=== PATIENT | female | born 2005 | race Caucasian/White ===

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

== ENCOUNTER 2023-04-03 06:13 | Emergency (ER) | payer BC, OTHER ==
[2023-04-03 06:22] VITALS: TEMP 98.6
--- NOTE | 2023-04-03 07:11 | ED ---
Female Urogenital HPI - General Chief complaint: Vaginal Bleeding Stated complaint: Vaginal Bleeding, Pain Time Seen by Provider: 04/03/23 06:23 Source: patient, RN notes reviewed Mode of arrival: ambulatory Limitations: no limitations - History of Present Illness Initial comments: 17-year-old female presents emergency Department chief complaints vaginal bleeding early . Patient states she was at [facility] 2 days ago and hCG of 4500. Patient states that she continues to have vaginal bleeding mild cramping. Patient is A1. Patient states she was passing some clots which has subsided. She states she does not know blood type she has. She denies any fevers or chills no other associated symptoms. - Related Data Home Medications Medication Instructions Recorded Confirmed Acetaminophen [Children's Tylenol] 480 mg PO Q6HR PRN 01/29/17 01/29/17 Aspirin/Sod Bicarb/Citric Acid 1 tab PO HS PRN 01/29/17 01/29/17 [[place] Original Tab Eff] Azithromycin [Zithromax Z-pack] See Taper PO DIRECTED 01/29/17 01/29/17 Previous Rx's Medication Instructions Recorded Acetaminophen Tab [Tylenol Tab] 500 mg PO Q6H PRN #24 tablet 08/12/22 Ibuprofen [Motrin] 600 mg PO Q8HR PRN #30 tab 08/12/22 Allergies Allergy/AdvReac Type Severity Reaction Status Date / Time amoxicillin AdvReac Swelling Verified 04/03/23 06:22 Review of Systems ROS Statement: Those systems with pertinent positive or pertinent negative responses have been documented in the HPI. ROS Other: All systems not noted in ROS Statement are negative. Past Medical History Past Medical History: No Reported History History of Any Multi-Drug Resistant Organisms: None Reported Past Surgical History: No Surgical Hx Reported Additional Past Surgical History / Comment(s): [place] Past Psychological History: No Psychological Hx Reported Smoking Status: Never smoker Past Alcohol Use History: None Reported Past Drug Use History: None Reported General Exam Limitations: no limitations General appearance: alert, in no apparent distress Head exam: Present: atraumatic, normocephalic, normal inspection Neck exam: Present: normal inspection. Absent: tenderness, meningismus, lymphadenopathy Respiratory exam: Present: normal lung sounds bilaterally. Absent: respiratory distress, wheezes, rales, rhonchi, stridor Cardiovascular Exam: Present: regular rate, normal rhythm, normal heart sounds. Absent: systolic murmur, diastolic murmur, rubs, gallop, clicks GI/Abdominal exam: Present: soft, normal bowel sounds. Absent: distended, tenderness, guarding, rebound, rigid Course Vital Signs 04/03/23 04/03/23 06:20 08:41 Temperature 98.6 F Pulse Rate 82 72 Respiratory 18 16 Rate Blood Pressure 105/67 100/63 O2 Sat by Pulse 98 97 Oximetry Medical Decision Making - Medical Decision Making Was pt. sent in by a medical professional or institution (, PA, [employer]EE ANDROID DEVELOPER, urgent care, hospital, or jail...) When possible be specific @ -No Did you speak to anyone other than the patient for history (EMS, parent, family, police, friend...)? What history was obtained from this source @ -No Did you review nursing and triage notes (agree or disagree)? Why? @ -I reviewed and agree with nursing and triage notes Were old charts reviewed (outside hosp., previous admission, EMS record, old EKG, old radiological studies, urgent care reports/EKG's, jail records)? Report findings @ -[Review the x-rays from [facility] Differential Diagnosis (chest pain, altered mental status, abdominal pain women, abdominal pain men, vaginal bleeding, weakness, fever, dyspnea, syncope, headache, dizziness, GI bleed, back pain, seizure, CVA, palpatations, mental health, musculoskeletal)? @ -nDifferential Vaginal Bleeding: Spontaneous , threatened , molar , ectopic , bloody show, incompetent cervix, abruptioplacenta, placenta previa, uterine rupture, dysfunctional uterine bleeding, hemorrhage, uterine fibroids, this is not meant to be an all-inclusive list.cable EKG interpreted by me (3pts min.). @ -None X-rays interpreted by me (1pt min.). @ -None done CT interpreted by me (1pt min.). @ -None done U/S interpreted by me (1pt. min.). @ -None done What testing was considered but not performed or refused? (CT, X-rays, U/S, labs)? Why? @ -None What meds were considered but not given or refused? Why? @ -None Did you discuss the management of the patient with other professionals (professionals i.e. , PA, [employer]EE ANDROID DEVELOPER, lab, RT, psych nurse, social contact worker, senior energy consultant, teacher, gift officer, case management assistant)? Give summary @ -No Was smoking cessation discussed for >3mins.? @ -No Was critical care preformed (if so, how long)? @ -No Were there social determinants of health that impacted care today? How? (Homelessness, low income, unemployed, alcoholism, drug addiction, trans portation, low edu. Level, literacy, decrease access to med. care, penitentiary, rehab)? @ -No Was there de-escalation of care discussed even if they declined (Discuss DNR or withdrawal of care, Hospice)? DNR status @ -No What co-morbidities impacted this encounter? (DM, HTN, Smoking, COPD, CAD, Cancer, CVA, ARF, Chemo, Hep., AIDS, mental health diagnosis, sleep apnea, morbid obesity)? @ -None Was patient admitted / discharged? Hospital course, mention meds given and route, prescriptions, significant lab abnormalities, going to OR and other pertinent info. @ -Discharge patient is having a miscarriage patient is not hemorrhaging vitals are stable patient is a positive blood type hCG decline from 0612-1338. Patient will follow-up with [facility] return parameters were discussed. Undiagnosed new problem with uncertain prognosis? @ -No Drug Therapy requiring intensive monitoring for toxicity (Heparin, Nitro, In sulin, Cardizem)? @ -No Were any procedures done? @ -No Diagnosis/symptom? @ -Miscarriage Acute, or Chronic, or Acute on Chronic? @ -Acute Uncomplicated (without systemic symptoms) or Complicated (systemic symptoms)? @ -Uncomplicated Side effects of treatment? @ -No Exacerbation, Progression, or Severe Exacerbation? @ -No Poses a threat to life or bodily function? How? (Chest pain, [place], ME, pneumonia, PE, COPD, DKA, ARF, appy, cholecystitis, CVA, Diverticulitis, Homicidal, Suicidal, threat to staff... and all critical care pts) @ -No - Lab Data Result diagrams: 04/03/23 06:47 04/03/23 06:47 Lab Results 04/03/23 04/03/23 04/03/23 Range/Units 06:47 06:47 06:47 WBC 7.0 (4.0-11.0) k/uL RBC 4.14 (3.80-5.40) m/uL Hgb 13.4 (11.4-16.0) gm/dL Hct 38.3 (34.0-46.0) % MCV 92.5 (80.0-100.0) fL MCH 32.4 (25.0-35.0) pg MCHC 35.0 (31.0-37.0) g/dL RDW 12.3 (11.5-15.5) % Plt Count 211 (150-450) k/uL MPV 7.9 Neutrophils % 53 % Lymphocytes % 35 % Monocytes % 6 % Eosinophils % 3 % Basophils % 0 % Neutrophils # 3.7 (1.3-7.7) k/uL Lymphocytes # 2.5 (1.0-4.8) k/uL Monocytes # 0.4 (0-1.0) k/uL Eosinophils # 0.2 (0-0.7) k/uL Basophils # 0.0 (0-0.2) k/uL Sodium 139 (137-145) mmol/L Potassium 4.0 (3.5-5.1) mmol/L Chloride 106 (98-107) mmol/L Carbon Dioxide 24 (22-30) mmol/L Anion Gap 9 mmol/L BUN 8 (7-17) mg/dL Creatinine 0.53 (0.52-1.04) mg/dL Est GFR (CKD-EPI)AfAm >90 (>60 ml/min/1.73 sqM) Est GFR (CKD-EPI)NonAf >90 (>60 ml/min/1.73 sqM) Glucose 117 H (74-99) mg/dL Calcium 9.0 (8.4-10.2) mg/dL HCG, Quant 3098.8 mIU/mL Urine Color Red Urine Appearance Turbid H (Clear) Urine pH 5.5 (5.0-8.0) Ur Specific [place] 1.022 (1.001-1.035) Urine Protein 2+ H (Negative) Urine Glucose (UA) Negative (Negative) Urine Ketones Trace H (Negative) Urine Blood Large H (Negative) Urine Nitrite Negative (Negative) Urine Bilirubin Negative (Negative) Urine Urobilinogen <2.0 (<2.0) mg/dL Ur Leukocyte Esterase Large H (Negative) Urine RBC >182 H (0-5) /hpf Urine WBC 33 H (0-5) /hpf Ur Squamous Epith Cells 37 H (0-4) /hpf Urine Mucus Occasional H (None) /hpf Blood Type Blood Type Recheck Bld Type Recheck Status 04/03/23 Range/Units 06:47 WBC (4.0-11.0) k/uL RBC (3.80-5.40) m/uL Hgb (11.4-16.0) gm/dL Hct (34.0-46.0) % MCV (80.0-100.0) fL MCH (25.0-35.0) pg MCHC (31.0-37.0) g/dL RDW (11.5-15.5) % Plt Count (150-450) k/uL MPV Neutrophils % % Lymphocytes % % Monocytes % % Eosinophils % % Basophils % % Neutrophils # (1.3-7.7) k/uL Lymphocytes # (1.0-4.8) k/uL Monocytes # (0-1.0) k/uL Eosinophils # (0-0.7) k/uL Basophils # (0-0.2) k/uL Sodium (137-145) mmol/L Potassium (3.5-5.1) mmol/L Chloride (98-107) mmol/L Carbon Dioxide (22-30) mmol/L Anion Gap mmol/L BUN (7-17) mg/dL Creatinine (0.52-1.04) mg/dL Est GFR (CKD-EPI)AfAm (>60 ml/min/1.73 sqM) Est GFR (CKD-EPI)NonAf (>60 ml/min/1.73 sqM) Glucose (74-99) mg/dL Calcium (8.4-10.2) mg/dL HCG, Quant mIU/mL Urine Color Urine Appearance (Clear) Urine pH (5.0-8.0) Ur Specific [place] (1.001-1.035) Urine Protein (Negative) Urine Glucose (UA) (Negative) Urine Ketones (Negative) Urine Blood (Negative) Urine Nitrite (Negative) Urine Bilirubin (Negative) Urine Urobilinogen (<2.0) mg/dL Ur Leukocyte Esterase (Negative) Urine RBC (0-5) /hpf Urine WBC (0-5) /hpf Ur Squamous Epith Cells (0-4) /hpf Urine Mucus (None) /hpf Blood Type A Positive Blood Type Recheck No Previous Record Bld Type Recheck Status [facility] ONLY Disposition Clinical Impression: Miscarriage Disposition: HOME SELF-CARE Condition: Stable Instructions (If sedation given, give patient instructions): Miscarriage (ED) Additional Instructions: Please return to the Emergency Department if symptoms worsen or any other concerns. Is patient prescribed a controlled substance at d/c from ED?: No Referrals: None,Stated [Primary Care Provider] - 1-2 days Time of Disposition: 07:58
[2023-04-03 07:15] LABS: Basophils % (A) 0 %; Eosinophils # (A) 0.2 k/uL (0-0.7); Eosinophils % (A) 3 %; HCT 38.3 % (34.0-46.0); HGB 13.4 gm/dL (11.4-16.0); Lymphocytes # (A) 2.5 k/uL (1.0-4.8); Lymphocytes % (A) 35 %; MCH 32.4 pg (25.0-35.0); MCV 92.5 fL (80.0-100.0); Mean Platelet Volume 7.9; Monocytes # (A) 0.4 k/uL (0-1.0); Monocytes % (A) 6 %; Neutrophils # (A) 3.7 k/uL (1.3-7.7); Neutrophils % (A) 53 %; Platelet Count 211 k/uL (150-450); RBC 4.14 m/uL (3.80-5.40); RDW 12.3 % (11.5-15.5)
[2023-04-03 07:16] LABS: African American GFR (CKD) >90 (>60 ml/min/1.73 sqM); Anion Gap 9 mmol/L; Blood Urea Nitrogen 8 mg/dL (7-17); Carbon Dioxide 24 mmol/L (22-30); Chloride 106 mmol/L (98-107); Glucose 117 mg/dL (74-99); Non-African American GFR(CKD) >90 (>60 ml/min/1.73 sqM); Sodium 139 mmol/L (137-145)
[2023-04-03 07:23] LABS: Appearance,Urine Turbid (Clear); Bilirubin,Urine Negative (Negative); Blood,Urine Large (Negative); Color,Urine Red; Glucose,Urine (UA) Negative (Negative); Ketones,Urine Trace (Negative); Leukocyte Esterase,Urine Large (Negative); Mucus,Urine Occasional /hpf; Nitrite,Urine Negative (Negative); PH, Urine 5.5 (5.0-8.0); Protein,Urine 2+ (Negative); RBC,Urine >182 /hpf (0-5); Specific Gravity,Urine 1.022 (1.001-1.035); Squamous Epithelial Cell,Urine 37 /hpf (0-4); Urobilinogen,Urine <2.0 mg/dL (<2.0); WBC,Urine 33 /hpf (0-5)
[2023-04-03 07:33] LABS: HCG,Quantitative Serum 3098.8 mIU/mL
[2023-04-03 08:42] VITALS: BP 100/63; PULSE 72; RESP 16
== END 2023-04-03 08:41 | disposition home or self-care (01) ==
LOC: EC 06:13
DX: O03.9 Complete or unspecified spontaneous abortion without complication (principal); Z88.0 Allergy status to penicillin
CPT/HCPCS: 36415; 80048; 81001; 84702; 85025; 86900; 86901; 99284

== ENCOUNTER 2023-10-25 17:53 | Outpatient (CLI) | payer OTHER ==
[2023-10-25 18:37] LABS: Appearance,Urine Clear (Clear); Bilirubin,Urine Negative (Negative); Blood,Urine Negative (Negative); Color,Urine Yellow; Glucose,Urine (UA) Negative (Negative); Ketones,Urine Negative (Negative); Leukocyte Esterase,Urine Negative (Negative); Nitrite,Urine Negative (Negative); Protein,Urine Negative (Negative); Specific Gravity,Urine 1.026 (1.001-1.035)
[2023-10-25 20:28] VITALS: BP 118/62; PULSE 104; RESP 18; TEMP 98.4
--- NOTE | 2023-10-27 11:20 | P.MSEPDOC ---
Presenting Problems - Arrival Data Date of Arrival on Unit: 10/25/23 Time of Arrival on Unit: 17:53 Mode of Transport: Ambulatory - Complaint OB-Reason for Admission/Chief Complaint: Pain Comment: Right flank pain Medical History - Information : 3 Para: 0 Term: 0 : 0 Abortions: Spontaneous or Elective: 0 Number of Living Children: 0 - Gestational Age Gestational Age by CHRISTIANE (wks/days): 20 Weeks and 2 Days Review of Systems - Review of Systems Constitutional: No problems Breast: No problems ENT: No problems Cardiovascular: No problems Respiratory: No problems Gastrointestinal: No problems Genitourinary: No problems Musculoskeletal: No problems Neurological: No problems Skin: No problems Vital Signs - Temperature Temperature: 98.4 F Temperature Source: Temporal Artery Scan - Pulse Pulse Oximetery Pulse Rate: 104 Pulse Assessment Method: Pulse Oximetry - Respirations Respiratory Rate: 18 Oxygen Delivery Method: Room Air O2 Sat by Pulse Oximetry: 99 - Blood Pressure Right Arm Blood Pressure: 118/62 Blood Pressure Mean: 80 Blood Pressure Source: Automatic Cuff Medical Screen Scoring - Assessment - Baby A Baseline FHR: 140 Physician Notification - Physician Notified Physician Notified Date: 10/25/23 Physician Notified Time: 19:58 Physician: Justin Ley New Order Received: Yes - Notification Comment Comment: Dr. Ley called, report given on pt's c/o R flank pain with some slight tenderness x "a few weeks" but worse last night and today. FHR 135-145 via doppler, no contractions noted, UA is WNL (no blood/ketones/WBCs). Pt was seen this week for her anatomy scan. Per MD, pain could be a possible kidney stone or muscle strain. Orders to discharge pt home with instructions to hydrate and continue tylenol/baths for musculoskeletal pain. F/U this week Maternal Triage Index - Maternal Triage Index Presenting for scheduled procedure w/no complaint: No - Stat/Priority 1 Stat Priority 1: No - Urgent/Priority 2 Urgent Priority 2: No - Prompt/Priority 3 Prompt Priority 3: No - Non-Urgent/Priority 4 Non-Urgent Priority 4: Yes Criteria Met for Priority 4: 20 3/7wks, R flank pain x"a few weeks" Disposition - Disposition OB Disposition: Discharge to home Discharge Date: 10/25/23 Discharge Time: 20:12 I agree with the RN Medical Screening Exam: Yes Physician's MSE Comment: I have neither seen nor examined the patient. Case reviewed; plan agreed upon as documented in EMR&OBIX.: Yes Diagnosis: RELATED CONDITIONS, UNSPECIFIED, SECOND TRIMESTER
== END 2023-10-25 20:12 | disposition home or self-care (01) ==
LOC: FBPOP 17:53
PROVIDERS: ATTEND Obstetrics & Gynecology
DX: O26.892 Other specified pregnancy related conditions, second trimester (principal); R10.9 Unspecified abdominal pain; Z3A.20 20 weeks gestation of pregnancy; Z88.0 Allergy status to penicillin; Z79.82 Long term (current) use of aspirin
CPT/HCPCS: 81003; G0463; 99213

== ENCOUNTER 2023-11-17 01:32 | Outpatient (CLI) | payer OTHER ==
[2023-11-17 02:42] VITALS: BP 117/63; PULSE 120; RESP 20; TEMP 99.6
--- NOTE | 2023-11-17 11:44 | P.MSEPDOC ---
Presenting Problems - Arrival Data Date of Arrival on Unit: 11/17/23 Time of Arrival on Unit: 01:32 Mode of Transport: Wheelchair - Complaint OB-Reason for Admission/Chief Complaint: Observation/Evaluation Comment: Patient complaint of chest pressure, difficulty breathing, weakness in the arms and legs, and pain in her upper back. Denies contractions. Medical History - Information : 3 Para: 0 Term: 0 : 0 Abortions: Spontaneous or Elective: 2 Number of Living Children: 0 - Gestational Age Gestational Age by CHRISTIANE (wks/days): 23 Weeks and 4 Days Review of Systems - Review of Systems Constitutional: No problems Breast: No problems ENT: No problems Cardiovascular: No problems Respiratory: No problems Gastrointestinal: No problems Genitourinary: No problems Musculoskeletal: No problems Neurological: No problems Skin: No problems Vital Signs - Temperature Temperature: 99.6 F Temperature Source: Oral - Pulse Pulse Oximetery Pulse Rate: 120 Pulse Assessment Method: Pulse Oximetry - Respirations Respiratory Rate: 20 Oxygen Delivery Method: Room Air O2 Sat by Pulse Oximetry: 98 - Blood Pressure Right Arm Blood Pressure: 117/63 Blood Pressure Mean: 81 Blood Pressure Source: Automatic Cuff Medical Screen Scoring - Assessment - Baby A Baseline FHR: 150 Physician Notification - Physician Notified Physician Notified Date: 11/17/23 Physician Notified Time: 01:42 Physician: Justin Ley New Order Received: No Maternal Triage Index - Maternal Triage Index Presenting for scheduled procedure w/no complaint: No - Stat/Priority 1 Stat Priority 1: No - Urgent/Priority 2 Urgent Priority 2: Yes Provider Notified: Justin Ley Provider Notified Time: 01:42 Criteria Met for Priority 2: Dr. Ley called, report given on maternal at status. FHR 150's baseline, no contractions felt by patient at this time. vitals (elevated HR), and complaint of chest pressure, difficulty breathing, weakness in the arms and legs and upper back pain. Orders to discharge and take patient to ER for evalutation. Prilosec OTC PRN for heartburn. Disposition - Disposition OB Disposition: Discharge to home Discharge Date: 11/17/23 Discharge Time: 01:51 I agree with the RN Medical Screening Exam: Yes Physician's MSE Comment: I have neither seen nor examined the patient. Case reviewed; plan agreed upon as documented in EMR&OBIX.: Yes Diagnosis: RELATED CONDITIONS, UNSPECIFIED, SECOND TRIMESTER
== END 2023-11-17 01:51 | disposition home or self-care (01) ==
LOC: FBPOP 01:32
PROVIDERS: ATTEND Obstetrics & Gynecology
DX: O26.892 Other specified pregnancy related conditions, second trimester (principal); Z3A.23 23 weeks gestation of pregnancy; Z88.0 Allergy status to penicillin
CPT/HCPCS: 99213

== ENCOUNTER 2023-11-17 02:01 | Emergency (ER) | payer OTHER ==
--- NOTE | 2023-11-17 02:23 | ED ---
General Adult HPI - General Chief complaint: Upper Respiratory Infection Stated complaint: Chest pain, difficulty breathing, weakness Time Seen by Provider: 11/17/23 02:07 Source: patient, RN notes reviewed, old records reviewed Mode of arrival: ambulatory Limitations: no limitations - History of Present Illness Initial comments: 18-year-old female presenting for evaluation of cough, congestion, myalgia. Symptoms began today. She was first seen in labor and delivery because she is currently 23 weeks this is her first . She was cleared by labor and delivery and sent to the emergency department for evaluation of symptoms. She has had no abdominal pain. No vaginal bleeding. No dysuria or hematuria. She has had cough, chest congestion, subjective fever and chills. Patient is otherwise healthy. - Related Data Allergies Allergy/AdvReac Type Severity Reaction Status Date / Time amoxicillin AdvReac Swelling Verified 11/17/23 02:06 Review of Systems ROS Statement: Those systems with pertinent positive or pertinent negative responses have been documented in the HPI. ROS Other: All systems not noted in ROS Statement are negative. Past Medical History Past Medical History: No Reported History History of Any Multi-Drug Resistant Organisms: None Reported Past Surgical History: No Surgical Hx Reported Additional Past Surgical History / Comment(s): Tebbetts Past Psychological History: No Psychological Hx Reported Smoking Status: Never smoker Past Alcohol Use History: None Reported Past Drug Use History: None Reported General Exam Limitations: no limitations General appearance: alert, in no apparent distress Head exam: Present: atraumatic, normocephalic Eye exam: Present: normal appearance, PERRL ENT exam: Present: mucous membranes moist Respiratory exam: Present: normal lung sounds bilaterally. Absent: respiratory distress, wheezes Cardiovascular Exam: Present: regular rate, normal rhythm GI/Abdominal exam: Present: soft, other (Gravid). Absent: tenderness Extremities exam: Present: normal inspection, normal capillary refill. Absent: calf tenderness Neurological exam: Present: alert, oriented X3 Psychiatric exam: Present: normal affect, normal mood Skin exam: Present: warm, dry, intact. Absent: cyanosis, diaphoretic Course Vital Signs 11/17/23 11/17/23 11/17/23 02:04 02:35 02:47 Temperature 97.8 F 99.1 F 100.1 F H Pulse Rate 109 H Respiratory 16 Rate Blood Pressure 109/68 O2 Sat by Pulse 98 Oximetry - Reevaluation(s) Reevaluation #1: 11/17/23 03:03 Patient offered Tamiflu, declines at this time. Instructed to take Tylenol for fever and body ache. To maintain hydration. To return with worsening or changing symptoms. Please follow-up with your help aid. Medical Decision Making - Medical Decision Making Was pt. sent in by a medical professional or institution (, DREA, SOFTWARE PROJECT MANAGER, urgent care, hospital, or fci...) When possible be specific @ -No Did you speak to anyone other than the patient for history (EMS, parent, family, police, friend...)? What history was obtained from this source @ -No Did you review nursing and triage notes (agree or disagree)? Why? @ -I reviewed and agree with nursing and triage notes Were old charts reviewed (outside hosp., previous admission, EMS record, old EKG, old radiological studies, urgent care reports/EKG's, fci records)? Report findings @ -No old charts were reviewed Differential Diagnosis (chest pain, altered mental status, abdominal pain women, abdominal pain men, vaginal bleeding, weakness, fever, dyspnea, syncope, headache, dizziness, GI bleed, back pain, seizure, CVA, palpatations, mental health, musculoskeletal)? @Coronavirus, pneumonia, influenza EKG interpreted by me (3pts min.). @ -As above X-rays interpreted by me (1pt min.). @ -None done CT interpreted by me (1pt min.). @ -None done U/S interpreted by me (1pt. min.). @ -None done What testing was considered but not performed or refused? (CT, X-rays, U/S, labs)? Why? @ -None What meds were considered but not given or refused? Why? @ -None Did you discuss the management of the patient with other professionals (professionals i.e. DREA Huntley, SOFTWARE PROJECT MANAGER, lab, RT, psych nurse, social media content specialist, integration aide, teacher, rating officer, case liner)? Give summary @ -No Was smoking cessation discussed for >3mins.? @ -No Was critical care preformed (if so, how long)? @ -No Were there social determinants of health that impacted care today? How? (Homelessness, low income, unemployed, alcoholism, drug addiction, transportation, low edu. Level, literacy, decrease access to med. care, [place] [facility], rehab)? @ -No Was there de-escalation of care discussed even if they declined (Discuss DNR or withdrawal of care, Hospice)? DNR status @ -No What co-morbidities impacted this encounter? (DM, HTN, Smoking, COPD, CAD, Cancer, CVA, ARF, Chemo, Hep., AIDS, mental health diagnosis, sleep apnea, morbid obesity)? @ -None Was patient admitted / discharged? Hospital course, mention meds given and route, prescriptions, significant lab abnormalities, going to OR and other pertinent info. @ -18-year-old female who is currently 23 weeks presenting with cough, congestion, myalgia. Patient does test positive for influenza. She is otherwise well-appearing lungs are clear to auscultation. She appears well- hydrated and is not vomiting. Undiagnosed new problem with uncertain prognosis? @ -No Drug Therapy requiring intensive monitoring for toxicity (Heparin, Nitro, Insulin, Cardizem)? @ -No Were any procedures done? @ -No Diagnosis/symptom? @ -[Influenza A Acute, or Chronic, or Acute on Chronic? @ -Acute Uncomplicated (without systemic symptoms) or Complicated (systemic symptoms)? @ -[default Side effects of treatment? @ -No Exacerbation, Progression, or Severe Exacerbation? @ -No Poses a threat to life or bodily function? How? (Chest pain, [place], [place], pneumonia, PE, COPD, DKA, ARF, appy, cholecystitis, CVA, Diverticulitis, Homicidal, Suicidal, threat to staff... and all critical care pts) @ -Low risk at this time - Lab Data Lab Results 11/17/23 Range/Units 02:14 Influenza Type A (PCR) Detected A (Not Detectd) Influenza Type B (PCR) Not Detected (Not Detectd) RSV (PCR) Not Detected (Not Detectd) SARS-CoV-2 (PCR) Not Detected (Not Detectd) Disposition Clinical Impression: Influenza A Disposition: HOME SELF-CARE Condition: Fair Instructions (If sedation given, give patient instructions): Influenza (ED) Is patient prescribed a controlled substance at d/c from ED?: No Referrals: None,Stated [Primary Care Provider] - 1-2 days Time of Disposition: 02:58
[2023-11-17] MEDS: ACETAMINOPHEN TAB 500 MG TAB PO STA (02:30)
[2023-11-17 03:14] VITALS: TEMP 99.1
[2023-11-17 03:46] VITALS: BP 109/54; PULSE 82; RESP 18
== END 2023-11-17 03:46 | disposition home or self-care (01) ==
LOC: EC 02:01
DX: O99.512 Diseases of the respiratory system complicating pregnancy, second trimester (principal); J10.1 Influenza due to other identified influenza virus with other respiratory manifestations; Z88.0 Allergy status to penicillin; Z20.822 Contact with and (suspected) exposure to COVID-19; Z3A.23 23 weeks gestation of pregnancy
CPT/HCPCS: 87636; 99284

== ENCOUNTER 2024-01-31 15:28 | Outpatient (CLI) | payer OTHER ==
[2024-01-31 16:09] LABS: Appearance,Urine Clear (Clear); Bilirubin,Urine Negative (Negative); Blood,Urine Negative (Negative); Color,Urine Colorless; Glucose,Urine (UA) Negative (Negative); Ketones,Urine Negative (Negative); Leukocyte Esterase,Urine Negative (Negative); Nitrite,Urine Negative (Negative); PH, Urine 6.5 (5.0-8.0); Protein,Urine Negative (Negative); Specific Gravity,Urine 1.011 (1.001-1.035); Urobilinogen,Urine <2.0 mg/dL (<2.0)
[2024-01-31] MEDS: LACTATED RINGERS 1,000 ML IV SCH (16:16)
== END 2024-01-31 17:00 | disposition home or self-care (01) ==
LOC: FBPOP 15:28
PROVIDERS: ATTEND Obstetrics & Gynecology Obstetrics
DX: R25.2 Cramp and spasm (principal); Z88.0 Allergy status to penicillin
CPT/HCPCS: 59025; 96360; 81003; G0463; 99214

== ENCOUNTER 2024-02-29 09:06 | Outpatient (CLI) | payer OTHER ==
[2024-02-29 10:52] VITALS: BP 122/67; PULSE 78; RESP 16; TEMP 98
--- NOTE | 2024-03-28 11:44 | P.MSEPDOC ---
Presenting Problems - Arrival Data Date of Arrival on Unit: 02/29/24 Time of Arrival on Unit: 09:06 Mode of Transport: Ambulatory - Complaint OB-Reason for Admission/Chief Complaint: Pain Comment: irregular cramping, constant hip/pelvic pain Medical History - Information : 3 Para: 0 Term: 0 : 0 Abortions: Spontaneous or Elective: 2 Number of Living Children: 0 - Gestational Age Gestational Age by CHRISTIANE (wks/days): 38 Weeks and 3 Days Review of Systems - Review of Systems Constitutional: No problems Breast: No problems ENT: No problems Cardiovascular: No problems Respiratory: No problems Gastrointestinal: No problems Genitourinary: No problems Musculoskeletal: No problems Neurological: No problems Skin: No problems Vital Signs - Temperature Temperature: 98.0 F Temperature Source: Temporal Artery Scan - Pulse Pulse Oximetery Pulse Rate: 78 Pulse Assessment Method: Pulse Oximetry - Respirations Respiratory Rate: 16 Oxygen Delivery Method: Room Air O2 Sat by Pulse Oximetry: 99 - Blood Pressure Right Arm Blood Pressure: 122/67 Blood Pressure Mean: 85 Blood Pressure Source: Automatic Cuff Medical Screen Scoring - Cervical Exam Dilation (cm): 1.5 Effacement (%): 70 Station: -2 Membranes: Intact - Uterine Contractions Frequency From (mins): 15 Frequency To (mins): 15 Duration From (seconds): 90 Duration To (seconds): 90 Intensity: Mild Resting: Soft to palpation - Assessment - Baby A Baseline FHR: 125 Heart Rate - NICHD Category: Category I (Normal) NST: Reactive Physician Notification - Physician Notified Physician Notified Date: 02/29/24 Physician Notified Time: 10:26 Physician: Justin Ley New Order Received: Yes - Notification Comment Comment: Dr. Ley on unit, report given on maternal complaints of constant hip/pelvic pain and irregular contractions. Pain started around 0200 after pt finished cleaning. Orders to discharge pt home as long as she has not made any cervical change. Keep her appt on Saturday. Maternal Triage Index - Maternal Triage Index Presenting for scheduled procedure w/no complaint: No - Stat/Priority 1 Stat Priority 1: No - Urgent/Priority 2 Urgent Priority 2: No - Prompt/Priority 3 Prompt Priority 3: No - Non-Urgent/Priority 4 Non-Urgent Priority 4: Yes Criteria Met for Priority 4: 38 3/7wks, irregular cramping, constant hip/pelvic/ligament pain since 0200 Disposition - Disposition OB Disposition: Discharge to home Discharge Date: 02/29/24 Discharge Time: 10:39 I agree with the RN Medical Screening Exam: Yes Physician's MSE Comment: I have neither seen nor examined the patient. Case reviewed; plan agreed upon as documented in EMR&OBIX.: Yes Diagnosis: RELATED CONDITIONS, UNSPECIFIED, THIRD TRIMESTER
== END 2024-02-29 10:39 | disposition home or self-care (01) ==
LOC: FBPOP 09:06
PROVIDERS: ATTEND Obstetrics & Gynecology
DX: O26.893 Other specified pregnancy related conditions, third trimester (principal); M25.559 Pain in unspecified hip; R10.2 Pelvic and perineal pain; Z3A.38 38 weeks gestation of pregnancy; Z88.0 Allergy status to penicillin
CPT/HCPCS: 59025; G0463; 99213

== ENCOUNTER 2024-03-06 14:57 | Inpatient (IN) | payer OTHER ==
[2024-03-06] MEDS ORDERED: miSOPROStoL 200 MCG TAB PO PRN (16:53)
[2024-03-06] MEDS ORDERED: TRANEXAMIC 1,000 MG/100ML-NACL 1,000 MG in EMPTY BAG 1 BAG IV PRN (16:53)
[2024-03-06] MEDS ORDERED: METHYLERGONOVINE 0.2 MG/ML 1 ML AMP IM PRN (16:53)
[2024-03-06] MEDS ORDERED: CARBOPROST TROMETHAMINE 250 MCG/ML 1 ML AMP IM PRN (16:53)
[2024-03-06] MEDS ORDERED: OXYTOCIN 10 UNIT/ML 1 ML VIAL IM PRN (16:53)
[2024-03-06] MEDS ORDERED: TERBUTALINE 1 MG/ML VIAL SQ PRN (16:53)
[2024-03-06] MEDS ORDERED: OXYTOCIN 30 UNITS/500 ML NS 30 UNIT in SALINE 1 500ML.BAG IV SCH (17:00)
[2024-03-06 18:09] LABS: Anisocytosis Slight; Basophils % (A) 0 %; Eosinophils # (A) 0.1 k/uL (0-0.7); Eosinophils % (A) 1 %; HCT 30.3 % (34.0-46.0); HGB 9.1 gm/dL (11.4-16.0); Hypochromasia Marked; Lymphocytes # (A) 1.7 k/uL (1.0-4.8); Lymphocytes % (A) 22 %; MCH 21.6 pg (25.0-35.0); MCV 72.3 fL (80.0-100.0); Mean Platelet Volume 9.1; Microcytosis Moderate; Monocytes # (A) 0.5 k/uL (0-1.0); Monocytes % (A) 6 %; Neutrophils # (A) 5.3 k/uL (1.3-7.7); Neutrophils % (A) 69 %; Platelet Count 218 k/uL (150-450); Poikilocytosis Moderate; RBC 4.19 m/uL (3.80-5.40); RDW 16.9 % (11.5-15.5); WBC 7.7 k/uL (4.0-11.0)
[2024-03-06] MEDS: OXYTOCIN 30 UNITS/500 ML NS 30 UNIT in SALINE 1 500ML.BAG IV SCH (19:48)
[2024-03-06] MEDS: LACTATED RINGERS 1,000 ML IV SCH (19:48)
[2024-03-06] MEDS: LIDOCAINE 0.5% (PF) 5 MG/ML (50 ML SDV) SQ PRN (19:49)
[2024-03-06] MEDS ORDERED: BENZOCAINE/MENTHOL SPRAY 1 GM/SPRAY AEROSOL TOPICAL PRN (21:26)
[2024-03-06] MEDS ORDERED: HYDROCORTISONE 2.5% RECTAL CREAM 30 GM TUBE RECTAL PRN (21:26)
[2024-03-06] MEDS ORDERED: LANOLIN CREAM 1 GM TUBE TOPICAL PRN (21:26)
[2024-03-06] MEDS ORDERED: SIMETHICONE 80 MG CHEWABLE PO PRN (21:26)
[2024-03-06] MEDS ORDERED: diphenhydrAMINE 50 MG CAP PO PRN (21:26)
[2024-03-06] MEDS ORDERED: ACETAMINOPHEN TAB 325 MG TAB PO PRN (21:26)
[2024-03-06] MEDS ORDERED: diphenhydrAMINE 25 MG CAP PO PRN (21:26)
[2024-03-06] MEDS ORDERED: diphenhydrAMINE 50 MG/ML 1 ML VIAL IVP PRN ×2 (21:26)
[2024-03-07] MEDS: IBUPROFEN 600 MG TAB PO PRN (04:28)
[2024-03-07 06:16] LABS: Anisocytosis Slight; Basophils % (A) 0 %; Eosinophils % (A) 0 %; HCT 29.2 % (34.0-46.0); HGB 8.7 gm/dL (11.4-16.0); Hypochromasia Marked; Lymphocytes # (A) 1.7 k/uL (1.0-4.8); Lymphocytes % (A) 15 %; MCH 21.1 pg (25.0-35.0); MCHC 29.7 g/dL (31.0-37.0); Mean Platelet Volume 9.3; Microcytosis Moderate; Monocytes # (A) 0.8 k/uL (0-1.0); Monocytes % (A) 7 %; Neutrophils # (A) 8.8 k/uL (1.3-7.7); Neutrophils % (A) 76 %; Platelet Count 191 k/uL (150-450); Poikilocytosis Moderate; RBC 4.12 m/uL (3.80-5.40); RDW 17.1 % (11.5-15.5); WBC 11.6 k/uL (4.0-11.0)
[2024-03-07] MEDS: SENNOSIDES-DOCUSATE SODIUM 1 EACH TAB PO SCH (08:10)
--- NOTE | 2024-03-07 11:10 | P.HPOB ---
History of Present Illness H&P Date: 03/06/24 Chief Complaint: labor 18-year-old presents at 39 weeks and 1 day Complaining of contractions. She was 5 cm dilated, her percent effaced, -2 station and kash every few minutes. heart tones 135 with moderate variability and reactive. Review of Systems All systems: negative Constitutional: Denies chills, Denies fever Eyes: denies blurred vision, denies pain Ears, nose, mouth and throat: Denies headache, Denies sore throat Cardiovascular: Denies chest pain, Denies shortness of breath Respiratory: Denies cough Gastrointestinal: Denies abdominal pain, Denies diarrhea, Denies nausea, Denies vomiting Genitourinary: Denies dysuria, Denies hematuria Musculoskeletal: Denies myalgias Integumentary: Denies pruritus, Denies rash Neurological: Denies numbness, Denies weakness Psychiatric: Denies anxiety, Denies depression Endocrine: Denies fatigue, Denies weight change Past Medical History Past Medical History: No Reported History History of Any Multi-Drug Resistant Organisms: None Reported Past Surgical History: No Surgical Hx Reported Additional Past Surgical History / Comment(s): [place] Past Psychological History: No Psychological Hx Reported Smoking Status: Never smoker Past Alcohol Use History: None Reported Past Drug Use History: None Reported - Past Family History Father Family Medical History: No Reported History Medications and Allergies Home Medications Medication Instructions Recorded Confirmed Type Vit No.179/Iron/Folic 1 each PO DAILY 02/29/24 03/06/24 History [ Tablet] Allergies Allergy/AdvReac Type Severity Reaction Status Date / Time Penicillins Allergy Rash/Hives Verified 03/06/24 15:01 Exam Osteopathic Statement: *. No significant issues noted on an osteopathic structural exam other than those noted in the History and Physical/Consult. Vital Signs Temp Pulse Resp BP BP Pulse Ox 03/07/24 08:00 98.4 F 104 H 16 107/65 97 03/07/24 07:38 16 03/07/24 04:00 98.9 F 82 16 103/55 97 03/06/24 23:57 98.5 F 100 16 108/61 96 03/06/24 23:38 16 03/06/24 21:38 98.5 F 101 H 16 115/55 100 03/06/24 21:23 93 16 110/57 03/06/24 21:08 98.9 F 97 16 114/62 03/06/24 20:53 98.5 F 93 16 119/64 03/06/24 20:38 99.2 F 87 16 116/69 100 03/06/24 20:23 98.7 F 83 16 116/65 100 03/06/24 20:08 97.9 F 80 16 124/66 100 03/06/24 19:53 91 16 131/62 03/06/24 19:38 90 16 126/60 03/06/24 16:53 98.2 F 78 16 123/59 Intake and Output 03/06/24 03/07/24 03/07/24 22:59 06:59 14:59 Intake Total 150.3 Output Total 70 Balance 80.3 Intake: Intake, IV Titration 150.3 Amount Oxytocin 30 Units/500 ml 150.3 Ns 30 unit In Saline 1 500ml.bag @ Per Protocol IV .Q0M [facility] Rx#:[id number] Output: Output, Quantitative 70 Blood Loss Other: Voiding Method Toilet # Voids 1 1 1 Weight 68.039 kg Heart: Regular rate and rhythm Lungs: Clear to auscultation bilaterally Abdomen: Soft, nontender Extremities: Negative Homans signl Results Result Diagrams: 03/07/24 05:56 Abnormal Lab Results - Last 24 Hours (Table) 03/06/24 03/07/24 Range/Units 17:00 05:56 WBC 11.6 H (4.0-11.0) k/uL Hgb 9.1 L 8.7 L (11.4-16.0) gm/dL Hct 30.3 L 29.2 L (34.0-46.0) % MCV 72.3 L 71.0 L (80.0-100.0) fL MCH 21.6 L 21.1 L (25.0-35.0) pg MCHC 30.0 L 29.7 L (31.0-37.0) g/dL RDW 16.9 H 17.1 H (11.5-15.5) % Neutrophils # 8.8 H (1.3-7.7) k/uL Assessment and Plan (1) Normal labor Current Visit: Yes Status: Acute Code(s): O80 - ENCOUNTER FOR FULL-TERM UNCOMPLICATED DELIVERY; Z37.9 - OUTCOME OF DELIVERY, UNSPECIFIED SNOMED Code(s): 41628276 Plan: 1. Admit to family place 2. Expectant management 3. Anticipate normal vaginal delivery
--- NOTE | 2024-03-07 11:12 | P.PROBDLV ---
Vaginal Delivery Note - . Vaginal Delivery Note: 18-year-old presents at 39 weeks and 1 day Complaining of contractions. She was 5 cm dilated, her percent effaced, -2 station and kash every few minutes. heart tones 135 with moderate variability and reactive. Amniotomy was performed at 1805 and clear fluid noted. Her cervix was completely dilated at 1840. She pushed, delivered a viable female infant over intact perineum at 1922. Head delivered OA, anterior shoulder delivered gentle downward guidance followed by posterior shoulder and rest of body. Nose and mouth bulb suctioned, cord clamped and cut, placed mother's abdomen. Apgars 9, 9, weight 8 lbs. 10 oz. Placenta delivered spontaneously, intact with three-vessel cord at 1925. Vagina, cervix, perineum inspected. First-degree midline laceration was repaired with 3-0 Vicryl. Estimated blood loss 200 mL. Mother and baby in stable condition.
--- NOTE | 2024-03-07 11:14 | P.DS ---
Providers Date of admission: 03/06/24 16:34 Expected date of discharge: 03/07/24 Attending physician: Jolanta Rojo MD Primary care physician: Jolanta Rojo MD - Discharge Diagnosis(es) (1) Normal labor Current Visit: Yes Status: Resolved (2) Status post normal vaginal delivery Current Visit: Yes Status: Acute Hospital Course: Patient presented in active labor. She used nitrous for pain management. She underwent a normal vaginal delivery. course was uneventful. She denies nausea, vomiting, chest pain, shortness of breath or calf pain. Patient will be discharged home day #1 in stable condition to follow-up with Dr. Rojo in 6 weeks. Plan - Discharge Summary New Discharge Prescriptions: New Ibuprofen [Motrin] 600 mg PO Q6HR PRN #30 tab PRN Reason: Mild Pain (Scale 1 To 3) No Action Vit No.179/Iron/Folic [ Tablet] 1 each PO DAILY Discharge Medication List Vit No.179/Iron/Folic [ Tablet] 1 each PO DAILY 02/29/24 [History] Ibuprofen [Motrin] 600 mg PO Q6HR PRN #30 tab 03/07/24 [Rx] Follow up Appointment(s)/Referral(s): Jolanta Rojo MD [Primary Care Provider] - 6 Weeks Discharge Disposition: HOME SELF-CARE
[2024-03-07 16:22] VITALS: BP 121/68; PULSE 92; RESP 18; TEMP 98.6
== END 2024-03-07 20:20 | disposition home or self-care (01) | DRG 560 ==
LOC: FBPOP 14:57 → 4FBP 16:34
PROVIDERS: ADMIT Obstetrics & Gynecology; ATTEND Obstetrics & Gynecology
PROC: 10E0XZZ Delivery of Products of Conception, External Approach (ICD-10-PCS; principal; 2024-03-06)
PROC: 10907ZC Drainage of Amniotic Fluid, Therapeutic from Products of Conception, Via Natural or Artificial Opening (ICD-10-PCS; principal; 2024-03-06)
PROC: 0HQ9XZZ Repair Perineum Skin, External Approach (ICD-10-PCS; principal; 2024-03-06)
DX: O70.0 First degree perineal laceration during delivery (principal); Z37.0 Single live birth; Z3A.39 39 weeks gestation of pregnancy; Z88.0 Allergy status to penicillin
CPT/HCPCS: 59025; 85025; 86850; 86900; 86901; 99213

== ENCOUNTER 2024-05-17 21:43 | Emergency (ER) | payer OTHER ==
[2024-05-17 21:51] VITALS: TEMP 98.3
--- NOTE | 2024-05-17 22:11 | ED ---
Skin/Abscess/FB HPI - General Chief complaint: Skin/Abscess/Foreign Body Stated complaint: Hemmoroids Time Seen by Provider: 05/17/24 22:00 Source: patient, RN notes reviewed Mode of arrival: ambulatory Limitations: no limitations - History of Present Illness Initial comments: Is a G2, female presents emergency department chief complaint of painful defecation and stools. Patient does have a history of hemorrhoids and states that over the past 2 days she has been experiencing bright red blood per rectum and additional to mildly painful bowel movements. Patient denies abdominal pain, nausea, vomiting, diarrhea, fevers, chills. Patient states that she recently took an at home test and is unaware of how far along she is. She is denying vaginal bleeding. Patient has attempted to use hemorrhoid wipes at home with minimal relief. No acute complaints at this time. - Related Data Home Medications Medication Instructions Recorded Confirmed Vit No.179/Iron/Folic 1 each PO DAILY 02/29/24 03/06/24 [ Tablet] Previous Rx's Medication Instructions Recorded Ibuprofen [Motrin] 600 mg PO Q6HR PRN #30 tab 03/07/24 Lidocaine Viscous 2% [Xylocaine 1 ml MUCOUS MEM DAILY PRN #15 ml 05/17/24 Viscous] Allergies Allergy/AdvReac Type Severity Reaction Status Date / Time Penicillins Allergy Rash/Hives Verified 05/17/24 21:51 Review of Systems ROS Statement: Those systems with pertinent positive or pertinent negative responses have been documented in the HPI. ROS Other: All systems not noted in ROS Statement are negative. Past Medical History Past Medical History: No Reported History History of Any Multi-Drug Resistant Organisms: None Reported Past Surgical History: No Surgical Hx Reported Additional Past Surgical History / Comment(s): [place] Past Psychological History: No Psychological Hx Reported Smoking Status: Never smoker Past Alcohol Use History: None Reported Past Drug Use History: None Reported - Past Family History Father Family Medical History: No Reported History General Exam Limitations: no limitations General appearance: alert, in no apparent distress Head exam: Present: atraumatic, normocephalic, normal inspection Eye exam: Present: normal appearance, PERRL, EOMI. Absent: scleral icterus, conjunctival injection, periorbital swelling ENT exam: Present: normal exam, mucous membranes moist Neck exam: Present: normal inspection. Absent: tenderness, meningismus, lymphadenopathy Respiratory exam: Present: normal lung sounds bilaterally. Absent: respiratory distress, wheezes, rales, rhonchi, stridor Cardiovascular Exam: Present: regular rate, normal rhythm, normal heart sounds. Absent: systolic murmur, diastolic murmur, rubs, gallop, clicks GI/Abdominal exam: Present: soft, normal bowel sounds. Absent: distended, tenderness, guarding, rebound, rigid Rectal exam: Present: normal rectal tone, hemorrhoids Extremities exam: Present: normal inspection, full ROM, normal capillary refill. Absent: tenderness, pedal edema, joint swelling, calf tenderness Back exam: Present: normal inspection Neurological exam: Present: alert, oriented X3, CN II-XII intact Skin exam: Present: warm, dry, intact, normal color. Absent: rash Course Vital Signs 05/17/24 05/17/24 21:48 22:47 Temperature 98.3 F Pulse Rate 100 98 Respiratory 18 20 Rate Blood Pressure 110/64 106/70 O2 Sat by Pulse 99 98 Oximetry Medical Decision Making - Medical Decision Making Was pt. sent in by a medical professional or institution (, PA, PACKAGING OPERATOR, urgent care, hospital, or group home...) When possible be specific @ -No Did you speak to anyone other than the patient for history (EMS, parent, family, police, friend...)? What history was obtained from this source @ -No Did you review nursing and triage notes (agree or disagree)? Why? @ -I reviewed and agree with nursing and triage notes Were old charts reviewed (outside hosp., previous admission, EMS record, old EKG, old radiological studies, urgent care reports/EKG's, group home records)? Report findings @ -No old charts were reviewed Differential Diagnosis (chest pain, altered mental status, abdominal pain women, abdominal pain men, vaginal bleeding, weakness, fever, dyspnea, syncope, headache, dizziness, GI bleed, back pain, seizure, CVA, palpatations, mental health, musculoskeletal)? @ -Differential GI Bleed: Esophageal varices, aortoenteric fistula, [place]-De [place], gastritis, peptic ulcer disease, diverticulosis, inflammatory bowel disease, hemorrhoids, fissure, colitis, malignancy, Meckel's diverticulum, this is not meant to be an all- inclusive list. EKG interpreted by me (3pts min.). @ -none X-rays interpreted by me (1pt min.). @ -None done CT interpreted by me (1pt min.). @ -None done U/S interpreted by me (1pt. min.). @ -None done What testing was considered but not performed or refused? (CT, X-rays, U/S, labs)? Why? @ -None What meds were considered but not given or refused? Why? @ -None Did you discuss the management of the patient with other professionals (professionals i.e. DrJeffrey, PA, PACKAGING OPERATOR, lab, RT, psych nurse, social media campaign manager, charging machine operator, teacher, branch lending officer, pillowcase cutter)? Give summary @ -No Was smoking cessation discussed for >3mins.? @ -No Was critical care preformed (if so, how long)? @ -No Were there social determinants of health that impacted care today? How? (Homelessness, low income, unemployed, alcoholism, drug addiction, transportation, low edu. Level, literacy, decrease access to med. care, retirement, rehab)? @ -No Was there de-escalation of care discussed even if they declined (Discuss DNR or withdrawal of care, Hospice)? DNR status @ -No What co-morbidities impacted this encounter? (DM, HTN, Smoking, COPD, CAD, Cancer, CVA, ARF, Chemo, Hep., AIDS, mental health diagnosis, sleep apnea, morbid obesity)? @ -None Was patient admitted / discharged? Hospital course, mention meds given and route, prescriptions, significant lab abnormalities, going to OR and other pertinent info. @ -Discharged. 19-year-old female with painful defecation and bloody stools. On examination patient noted to have external hemorrhoids are not actively bleeding. There is good rectal tone. With patient at bedside supportive treatment including increasing oral hydration, fiber supplements, stool softener, sitz bath's. She is provided prescription for topical viscous lidocaine to apply 1 time per day to aid in symptomatic relief as well. Recommend patient follows up with her hyperion essbase developer and OB for further evaluation of . All questions answered at bedside and strict return parameters discussed with the patient she is verbalized understanding. Discussed with Dr. Moore. Undiagnosed new problem with uncertain prognosis? @ -No Drug Therapy requiring intensive monitoring for toxicity (Heparin, Nitro, Insulin, Cardizem)? @ -No Were any procedures done? @ -No Diagnosis/symptom? @ -Hemorrhoids Acute, or Chronic, or Acute on Chronic? @ -Acute Uncomplicated (without systemic symptoms) or Complicated (systemic symptoms)? @ -uncomplicated Side effects of treatment? @ -No Exacerbation, Progression, or Severe Exacerbation? @ -No Poses a threat to life or bodily function? How? (Chest pain, [place], CA, pneumonia, PE, COPD, DKA, ARF, appy, cholecystitis, CVA, Diverticulitis, Homicidal, Suicidal, threat to staff... and all critical care pts) @ -No Disposition Clinical Impression: Hemorrhoids during Disposition: HOME SELF-CARE Condition: Good Instructions (If sedation given, give patient instructions): Hemorrhoids (ED) Additional Instructions: Return to emergency department for any new or worsening symptoms. Take medication for pain. Increase oral fluid, fiber intake, use of stool softener. Use sitz bath's. Follow-up as scheduled with OB. Prescriptions: Lidocaine Viscous 2% [Xylocaine Viscous] 1 ml MUCOUS MEM DAILY PRN #15 ml PRN Reason: Pain Is patient prescribed a controlled substance at d/c from ED?: No Referrals: None,Stated [Primary Care Provider] - 1-2 days Time of Disposition: 22:41
[2024-05-17 22:49] VITALS: BP 106/70; PULSE 98; RESP 20
== END 2024-05-17 23:15 | disposition home or self-care (01) ==
LOC: EC 21:43
DX: O22.40 Hemorrhoids in pregnancy, unspecified trimester (principal); Z88.0 Allergy status to penicillin; Z3A.00 Weeks of gestation of pregnancy not specified
CPT/HCPCS: 99283

== ENCOUNTER 2024-12-01 19:32 | Outpatient (CLI) | payer OTHER ==
[2024-12-01 21:05] VITALS: BP 118/67; PULSE 94; RESP 18; TEMP 97.7
--- NOTE | 2024-12-18 11:21 | P.MSEPDOC ---
Presenting Problems - Arrival Data Date of Arrival on Unit: 12/01/24 Time of Arrival on Unit: 19:32 Mode of Transport: Ambulatory - Complaint OB-Reason for Admission/Chief Complaint: Pain Comment: left hip pain/numbness/tingling. Medical History - Information : 4 Para: 1 Term: 1 : 0 Abortions: Spontaneous or Elective: 2 Number of Living Children: 1 - Gestational Age Gestational Age by CHRISTIANE (wks/days): 32 Weeks and 6 Days - History Complications: Other Comment: baby is transverse, anterior placenta. Review of Systems - Review of Systems Constitutional: No problems Breast: No problems ENT: No problems Cardiovascular: No problems Respiratory: No problems Gastrointestinal: No problems Genitourinary: No problems Musculoskeletal: Muscle weakness Neurological: No problems Skin: No problems Comment: patient walks with slight limp due to pain. Vital Signs - Temperature Temperature: 97.7 F - Pulse Right Pulse Rate: 94 Pulse Assessment Method: Pulse Oximetry - Respirations Respiratory Rate: 18 Oxygen Delivery Method: Room Air O2 Sat by Pulse Oximetry: 100 - Blood Pressure Right Arm Blood Pressure: 118/67 Blood Pressure Mean: 84 Blood Pressure Source: Automatic Cuff Medical Screen Scoring - Assessment - Baby A Baseline FHR: 125 Heart Rate - NICHD Category: Category I (Normal) NST: Reactive Physician Notification - Physician Notified Physician Notified Date: 12/01/24 Physician Notified Time: 20:24 Physician: Justin Ley Order Received: Yes (d/c home, follow up with Dr Rojo for possible PT consult for sciatica) Maternal Triage Index - Maternal Triage Index Presenting for scheduled procedure w/no complaint: No - Stat/Priority 1 Stat Priority 1: No - Urgent/Priority 2 Urgent Priority 2: No - Prompt/Priority 3 Prompt Priority 3: No - Non-Urgent/Priority 4 Non-Urgent Priority 4: Yes Criteria Met for Priority 4: left hip pain. Disposition - Disposition OB Disposition: Discharge to home Discharge Date: 12/01/24 Discharge Time: 20:30 I agree with the RN Medical Screening Exam: Yes Physician's MSE Comment: I have neither seen nor examined the patient. Case reviewed; plan agreed upon as documented in EMR&OBIX.: Yes Diagnosis: RELATED CONDITIONS, UNSPECIFIED, THIRD TRIMESTER
== END 2024-12-01 20:30 | disposition home or self-care (01) ==
LOC: FBPOP 19:32
PROVIDERS: ATTEND Obstetrics & Gynecology
DX: O26.93 Pregnancy related conditions, unspecified, third trimester (principal); O26.893 Other specified pregnancy related conditions, third trimester; M25.552 Pain in left hip; Z3A.32 32 weeks gestation of pregnancy; Z88.0 Allergy status to penicillin
CPT/HCPCS: 59025; G0463; 99213

== ENCOUNTER 2024-12-30 23:48 | Outpatient (CLI) | payer OTHER ==
[2024-12-31] MEDS: ACETAMINOPHEN IV (For NPO) 1,000 MG in EMPTY BAG 1 BAG IVPB ONE (00:42)
[2024-12-31] MEDS: LACTATED RINGERS 1,000 ML IV SCH (00:44)
[2024-12-31 01:41] LABS: Influenza A Not Detected (Not Detectd); Influenza B Detected (Not Detectd); RSV Not Detected (Not Detectd)
[2024-12-31 03:06] VITALS: BP 95/57; PULSE 139; RESP 16; TEMP 98.7
--- NOTE | 2025-01-30 20:52 | P.MSEPDOC ---
Presenting Problems - Arrival Data Date of Arrival on Unit: 12/30/24 Time of Arrival on Unit: 23:48 Mode of Transport: Wheelchair - Complaint OB-Reason for Admission/Chief Complaint: Observation/Evaluation, Other Comment: Pt comes to with s/s of Influenza. Fever, bady aches,headache,fatigue, cough. Symtoms started this evening. Medical History - Information : 4 Para: 1 Term: 1 Abortions: Spontaneous or Elective: 2 Number of Living Children: 1 - Gestational Age Gestational Age by CHRISTIANE (wks/days): 37 Weeks and 1 Days Review of Systems - Review of Systems Constitutional: Fever, Fatigue Breast: No problems ENT: Sore throat Cardiovascular: No problems Respiratory: No problems Gastrointestinal: No problems Genitourinary: No problems Musculoskeletal: No problems Neurological: No problems Skin: No problems Vital Signs - Temperature Temperature: 98.7 F Temperature Source: Oral - Pulse Right Sitting Pulse Rate: 139 Pulse Assessment Method: Pulse Oximetry - Respirations Respiratory Rate: 16 Oxygen Delivery Method: Room Air O2 Sat by Pulse Oximetry: 97 - Blood Pressure Right Arm Sitting Blood Pressure: 95/57 Blood Pressure Mean: 69 Blood Pressure Source: Automatic Cuff Medical Screen Scoring - Cervical Exam Dilation (cm): 3 Effacement (%): 70 Station: -3 Membranes: Intact - Uterine Contractions Frequency From (mins): 5 Frequency To (mins): 6 Duration From (seconds): 50 Duration To (seconds): 90 Intensity: Moderate Resting: Soft to palpation - Assessment - Baby A Baseline FHR: 145 Heart Rate - NICHD Category: Category I (Normal) NST: Reactive Physician Notification - Physician Notified Physician Notified Date: 12/31/24 Physician Notified Time: 00:23 Physician: Jolanta Rojo Order Received: Yes (Pt may be discharged home once heart rates decreases and IV fluids infused.) - Notification Comment Comment: Positive for Influenza B, Tamiflu to be e-scribed to pts pharmacy. Maternal Triage Index - Maternal Triage Index Presenting for scheduled procedure w/no complaint: No - Stat/Priority 1 Stat Priority 1: No - Urgent/Priority 2 Urgent Priority 2: No - Prompt/Priority 3 Prompt Priority 3: No - Non-Urgent/Priority 4 Non-Urgent Priority 4: Yes Criteria Met for Priority 4: Flu like symptoms.Cramping. Disposition - Disposition OB Disposition: Discharge to home, Written follow up instructions reviewed Discharge Date: 12/31/24 Discharge Time: 02:00 I agree with the RN Medical Screening Exam: Yes Physician's MSE Comment: I have neither seen nor examined the patient Case reviewed; plan agreed upon as documented in EMR&OBIX.: Yes Diagnosis: DEHYDRATION
== END 2024-12-31 02:00 | disposition home or self-care (01) ==
LOC: FBPOP 23:48
PROVIDERS: ATTEND Obstetrics & Gynecology
DX: O26.893 Other specified pregnancy related conditions, third trimester (principal); E86.0 Dehydration; Z88.0 Allergy status to penicillin; Z3A.37 37 weeks gestation of pregnancy
CPT/HCPCS: 59025; 96361; 96365; 87636; G0463; J0131; 99214

== ENCOUNTER 2025-01-18 02:20 | Inpatient (IN) | payer OTHER ==
[2025-01-18] MEDS ORDERED: OXYTOCIN 10 UNIT/ML 1 ML VIAL IM PRN (03:05)
[2025-01-18] MEDS ORDERED: TERBUTALINE 1 MG/ML VIAL SQ PRN (03:05)
[2025-01-18] MEDS ORDERED: LIDOCAINE 0.5% (PF) 5 MG/ML (50 ML SDV) SQ PRN (03:05)
[2025-01-18] MEDS ORDERED: miSOPROStoL 200 MCG TAB RECTAL PRN (03:05)
[2025-01-18] MEDS ORDERED: CARBOPROST TROMETHAMINE 250 MCG/ML 1 ML AMP IM PRN (03:05)
[2025-01-18] MEDS ORDERED: miSOPROStoL 200 MCG TAB PO PRN (03:05)
[2025-01-18] MEDS ORDERED: METHYLERGONOVINE 0.2 MG/ML 1 ML AMP IM PRN (03:05)
[2025-01-18] MEDS ORDERED: TRANEXAMIC 1,000 MG/100ML-NACL 1,000 MG in EMPTY BAG 1 BAG IV PRN (03:05)
[2025-01-18] MEDS ORDERED: OXYTOCIN 30 UNITS/500 ML NS 30 UNIT in SALINE 1 500ML.BAG IV SCH (03:15)
[2025-01-18] MEDS: LACTATED RINGERS 1,000 ML IV SCH (03:37)
[2025-01-18 03:39] LABS: Basophils # (A) 0.02 10*3/uL (0.00-0.10); Basophils % (A) 0.3 %; Eosinophils # (A) 0.03 10*3/uL (0.04-0.35); Eosinophils % (A) 0.4 %; HCT 32.1 % (37.2-46.3); HGB 9.9 g/dL (12.0-15.0); Lymphocytes # (A) 1.64 10*3/uL (0.90-5.00); Lymphocytes % (A) 21.8 %; MCH 23.6 pg (27.0-32.0); MCHC 30.8 g/dL (32.0-37.0); MCV 76.6 fL (80.0-97.0); Mean Platelet Volume 9.7 fL (9.5-12.2); Monocytes # (A) 0.54 10*3/uL (0.20-1.00); Monocytes % (A) 7.2 %; Neutrophils # (A) 5.25 10*3/uL (1.80-7.70); Neutrophils % (A) 69.9 %; Platelet Count 321 10*3/uL (140-440); RBC 4.19 10*6/uL (4.10-5.20); RDW 22.1 % (11.5-14.5); WBC 7.51 10*3/uL (4.50-10.00)
[2025-01-18] MEDS ORDERED: BUTORPHANOL 1 MG/ML 1 ML VIAL IV PRN (04:21)
--- NOTE | 2025-01-18 04:27 | P.HPOB ---
History of Present Illness H&P Date: 01/18/25 Chief Complaint: 39+ weeks, active labor The patient is a 19-year-old 4 para 1-0-2-1 admitted at 39-5/7 weeks as established by last menstrual period confirmed by 10-week ultrasound. She is admitted in active labor with all signs reassuring, category 1 heart rate tracing. Her has been uncomplicated aside from being very short interval in nature with previous delivery less than 1 year ago. Group B strep status is negative. Obstetrical history: 4 para 1-0-2-1 with 1 term vaginal delivery without complications. Current statistics are listed in history of present illness. EDC of 01/20/2025 was established by last menstrual period and confirmed by 10-week ultrasound. Laboratory workup demonstrates a blood type of A+ with a negative antibody screen. Rubella status is immune. The remainder of the laboratory workup was within normal limits. 1 hour Glucola was within normal limits and group B strep status is negative. Gynecologic history: Unremarkable with no history of any infections to include STDs. Review of Systems Review of systems is confined to history of present illness. Past Medical History Past Medical History: No Reported History History of Any Multi-Drug Resistant Organisms: None Reported Past Surgical History: No Surgical Hx Reported Additional Past Surgical History / Comment(s): [place] Past Anesthesia/Blood Transfusion Reactions: No Reported Reaction Past Psychological History: No Psychological Hx Reported Smoking Status: Never smoker Past Alcohol Use History: None Reported Past Drug Use History: None Reported - Past Family History Father Family Medical History: No Reported History Medications and Allergies Home Medications Medication Instructions Recorded Confirmed Type Vit No.179/Iron/Folic 1 each PO DAILY 02/29/24 01/18/25 History [ Tablet] Allergies Allergy/AdvReac Type Severity Reaction Status Date / Time Penicillins Allergy Rash/Hives Verified 12/31/24 00:02 Exam Vital Signs Temp Pulse Resp BP Pulse Ox 01/18/25 02:24 97.3 F L 86 16 122/72 99 Intake and Output 01/17/25 01/17/25 01/18/25 14:59 22:59 06:59 Other: Weight 66.224 kg In general, this is a well-developed, well-nourished white female in no acute distress. Her heart has a regular rhythm and rate without murmur. Her lungs are clear to auscultation bilaterally in all zarate. Her abdomen is gravid, nondistended, has normal active bowel sounds, soft, nontender, and without any palpable masses aside from the uterine fundus. Her extremities are without any cyanosis, clubbing, or edema and are nontender to palpation bilaterally. Most recent digital cervical examination demonstrates her cervix to be 6 cm dilated, 90% effaced, with a vertex and presentation at -2 station. Amniotic membranes are intact. Results Result Diagrams: 01/18/25 03:14 Abnormal Lab Results - Last 24 Hours (Table) 01/18/25 Range/Units 03:14 Hgb 9.9 L (12.0-15.0) g/dL Hct 32.1 L (37.2-46.3) % MCV 76.6 L (80.0-97.0) fL MCH 23.6 L (27.0-32.0) pg MCHC 30.8 L (32.0-37.0) g/dL Eosinophils # 0.03 L (0.04-0.35) 10*3/uL Assessment and Plan (1) Active labor at term Current Visit: Yes Status: Acute Code(s): MMB1580 - SNOMED Code(s): 91462702 Plan: The patient is admitted for active management of labor. She will have close ma ternal and surveillance and expectant management will be practiced. She is a good candidate for epidural or IV anesthesia, which ever she may choose.
[2025-01-18] MEDS ORDERED: LANOLIN CREAM 1 GM TUBE TOPICAL PRN (10:36)
[2025-01-18] MEDS ORDERED: diphenhydrAMINE 50 MG CAP PO PRN (10:36)
[2025-01-18] MEDS ORDERED: SIMETHICONE 80 MG CHEWABLE PO PRN (10:36)
[2025-01-18] MEDS ORDERED: HYDROCORTISONE 2.5% RECTAL CREAM 30 GM TUBE RECTAL PRN (10:36)
[2025-01-18] MEDS ORDERED: diphenhydrAMINE 25 MG CAP PO PRN (10:36)
[2025-01-18] MEDS ORDERED: ZOLPIDEM 5 MG TAB PO PRN (10:36)
[2025-01-18] MEDS ORDERED: diphenhydrAMINE 50 MG/ML 1 ML VIAL IVP PRN ×2 (10:36)
[2025-01-18] MEDS: IBUPROFEN 800 MG TAB PO SCH (10:48)
[2025-01-18] MEDS: BENZOCAINE/MENTHOL SPRAY 1 GM/SPRAY AEROSOL TOPICAL PRN (12:21)
[2025-01-18] MEDS: ACETAMINOPHEN TAB 500 MG TAB PO SCH (20:28)
[2025-01-18] MEDS: SENNOSIDES-DOCUSATE SODIUM 1 EACH TAB PO SCH (23:22)
[2025-01-19 07:03] LABS: Basophils # (A) 0.03 10*3/uL (0.00-0.10); Basophils % (A) 0.3 %; Eosinophils # (A) 0.09 10*3/uL (0.04-0.35); HCT 33.4 % (37.2-46.3); HGB 10.3 g/dL (12.0-15.0); Lymphocytes # (A) 2.24 10*3/uL (0.90-5.00); MCH 23.9 pg (27.0-32.0); MCHC 30.8 g/dL (32.0-37.0); MCV 77.5 fL (80.0-97.0); Mean Platelet Volume 10.4 fL (9.5-12.2); Monocytes # (A) 0.66 10*3/uL (0.20-1.00); Monocytes % (A) 7.1 %; Neutrophils # (A) 6.26 10*3/uL (1.80-7.70); Neutrophils % (A) 67.2 %; Platelet Count 281 10*3/uL (140-440); RBC 4.31 10*6/uL (4.10-5.20); RDW 21.7 % (11.5-14.5); WBC 9.32 10*3/uL (4.50-10.00)
--- NOTE | 2025-01-19 08:38 | P.DS ---
Providers Date of admission: 01/18/25 02:51 Expected date of discharge: 01/19/25 Attending physician: Jolanta Rojo MD Primary care physician: Stated None Hospital Course: Ms. Tang is a 19 year old now PPD#1 s/p with Dr. Ardon that was uncomplicated. The patient is doing well this morning and had no acute events overnight. She has no complaints this morning. She reports minimal lochia, passing flatus, voiding without difficulty, ambulating, and eating/drinking without nausea or vomiting. Infant doing well at bedside, formula feeding is going well. She denies chest pain, shortness of breathing, fevers, or chills overnight. She denies pain or swelling in the legs. restrictions are reviewed with the patient including pelvic rest for 6 weeks. The patient is encouraged to call the office if she experiences any heavy bleeding, foul- smelling discharge, breast complaints, or any if she has any other concerns. She will follow up in the office with in 6 weeks for exam. All questions are answered. Patient Condition at Discharge: Good Plan - Discharge Summary New Discharge Prescriptions: New Docusate [Colace] 100 mg PO BID PRN #60 capsule PRN Reason: Constipation No Action Vit No.179/Iron/Folic [ Tablet] 1 each PO DAILY Discharge Medication List Vit No.179/Iron/Folic [ Tablet] 1 each PO DAILY 02/29/24 [History] Docusate [Colace] 100 mg PO BID PRN #60 capsule 01/19/25 [Rx] Follow up Appointment(s)/Referral(s): Jolanta Rojo MD [STAFF PHYSICIAN] - 02/23/25 1:00 pm Activity/Diet/Wound Care/Special Instructions: Instructions 1. Do not begin any exercise program for 3 weeks. 2. Do not resume sexual relations for 6 weeks or longer if uncomfortable. 3. You may take tub baths or showers at any time. 4. You may use tampons if desired after 6 weeks. 5. Keep any areas repaired with stitches clean and dry. 6. If you are not nursing, wear a good fitting, supportive bra during the day and limit fluid intake for at least 1 week to prevent breast engorgement. 7. Call the office, , within the next week to make appointment for your 6 week checkup if it has not already been made. 8. Report any of the following occurrences to the doctor promptly: a. Heavy, excessive bleeding b. Chills, fever c. Burning or frequency of urination d. Pain or redness and breasts if nursing e. Increasing pain or swelling of vulva (stitches). In addition to the above instructions, the following additional should be followed: 1. No heavy lifting or straining (exercising) until after 6 week checkup. 2. Keep abdominal incision clean and dry: You may wear a dressing if more comfortable. 3. Make office appointment for 2 weeks after delivery date. Discharge Disposition: HOME SELF-CARE
[2025-01-19 08:40] VITALS: BP 107/61; PULSE 68; RESP 16; TEMP 98.1
== END 2025-01-19 12:50 | disposition home or self-care (01) | DRG 560 ==
LOC: FBPOP 02:20 → 4FBP 02:51
PROVIDERS: ADMIT Obstetrics & Gynecology; ATTEND Obstetrics & Gynecology
PROC: 10E0XZZ Delivery of Products of Conception, External Approach (ICD-10-PCS; principal; 2025-01-18)
DX: O80 Encounter for full-term uncomplicated delivery (principal); Z37.0 Single live birth; Z3A.39 39 weeks gestation of pregnancy; Z28.310 Unvaccinated for COVID-19; Z28.21 Immunization not carried out because of patient refusal; Z88.0 Allergy status to penicillin
CPT/HCPCS: 59025; 85025; 86850; 86900; 86901; 99213